=== PATIENT | female | born 1965 | race American Indian/Alaskan Native ===

== ENCOUNTER 2020-07-03 23:10 | Emergency (ER) | payer MEDICARE ==
--- NOTE | 2020-07-04 04:37 | XRay Report ---
CHEST 1 VIEW INDICATION: Chest Pain. COMPARISON: None. FINDINGS: SUPPORT DEVICES: None. HEART: Within normal limits. LUNGS/PLEURA: No acute air space or interstitial disease. ADDITIONAL FINDINGS: None. IMPRESSION: 1. No acute findings. Signer Name: Myles Branch MD Signed: 07/04/2020 4:33 AM Workstation Name: [id number]
[2020-07-04 04:50] LABS: Basophils # (Auto) 0.1 K/mm3 (0.0-0.1); Basophils % (Auto) 2.4 % (0.0-1.8); Eosinophils # (Auto) 0.3 K/mm3 (0.0-0.4); Eosinophils % (Auto) 10.4 % (0.0-4.3); Hematocrit 36.1 % (30.3-42.9); Hemoglobin 12.4 gm/dl (10.1-14.3); Lymphocytes # (Auto) 1.1 K/mm3 (1.2-5.4); Lymphocytes % (Auto) 32.7 % (13.4-35.0); Mean Corpuscular HGB Conc 34 % (30-34); Mean Corpuscular Volume 100 fl (79-97); Monocytes # (Auto) 0.4 K/mm3 (0.0-0.8); Monocytes % (Auto) 12.1 % (0.0-7.3); Platelet Count 345 K/mm3 (140-440); Red Blood Count 3.59 M/mm3 (3.65-5.03); Red Cell Distribution Width 12.4 % (13.2-15.2)
[2020-07-04 05:07] LABS: BUN/Creatinine Ratio 14; Blood Urea Nitrogen 14 mg/dL (7-17); Calcium 9.8 mg/dL (8.4-10.2); Hemolysis Index 3
[2020-07-04] MEDS ORDERED: ACETAMINOPHEN 325 MG TAB PO ONE (06:05)
[2020-07-04 09:25] VITALS: BP 150/86
[2020-07-04] MEDS ORDERED: IPRATROPIUM/ALBUTEROL SULFATE 3 ML AMPUL.NEB IH ONE (09:33)
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
== END 2020-07-04 10:46 | disposition home or self-care (01) ==
LOC: ED 23:10
DX: S20.219A Contusion of unspecified front wall of thorax, initial encounter (principal); J45.901 Unspecified asthma with (acute) exacerbation; Z98.890 Other specified postprocedural states; Z79.2 Long term (current) use of antibiotics; Z79.899 Other long term (current) drug therapy; Z88.8 Allergy status to other drugs, medicaments and biological substances; X58.XXXA Exposure to other specified factors, initial encounter; Y93.89 Activity, other specified; Y92.89 Other specified places as the place of occurrence of the external cause; Y99.8 Other external cause status
CPT/HCPCS: 36415; 71045; 80048; 84484; 85025; 93005; 94640; 94644

== ENCOUNTER 2020-07-12 03:29 | Emergency (ER) | payer MEDICARE ==
[2020-07-12] MEDS ORDERED: MIDAZOLAM 5 MG/5 ML INJ MDV IV ONE (04:05)
[2020-07-12] MEDS ORDERED: EPINEPHrine/PF 1 MG/1 ML INJ SUB-Q ONE (04:05)
[2020-07-12] MEDS ORDERED: ALBUTEROL 2.5 MG/3 ML NEBU IH ONE (04:05)
[2020-07-12] MEDS ORDERED: IPRATROPIUM 0.02% NEBU 2.5 ML IH ONE (04:05)
[2020-07-12] MEDS ORDERED: SODIUM CHLORIDE 0.9% 500 ML 500 ML IV ONE (04:05)
[2020-07-12] MEDS ORDERED: methylPREDNISolone Sod Succinate 125 MG/2 ML INJ IV ONE (04:05)
[2020-07-12] MEDS ORDERED: MAGNESIUM SULFATE 2 GM/50 ML BAG IV ONE (04:06)
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
--- NOTE | 2020-07-12 04:24 | XRay Report ---
CHEST 1 VIEW 0418 INDICATION / CLINICAL INFORMATION: Dyspnea COMPARISON: 07/04/2020 FINDINGS: SUPPORT DEVICES: None HEART / MEDIASTINUM: No significant abnormality. LUNGS / PLEURA: No significant pulmonary or pleural abnormality. No pneumothorax. ADDITIONAL FINDINGS: No significant additional findings. IMPRESSION: No significant acute abnormality Signer Name: Carlos Verma MD Signed: 07/12/2020 4:19 AM Workstation Name: [id number]
[2020-07-12] MEDS ORDERED: predniSONE 20 MG TAB PO ONE (04:32)
[2020-07-12 06:23] VITALS: BP 146/93
== END 2020-07-12 06:30 | disposition left against medical advice (07) ==
LOC: ED 03:29
DX: R06.00 Dyspnea, unspecified (principal); Z20.828 Contact with and (suspected) exposure to other viral communicable diseases; J45.909 Unspecified asthma, uncomplicated; Z79.899 Other long term (current) drug therapy; Z88.8 Allergy status to other drugs, medicaments and biological substances
CPT/HCPCS: 71045; 93005; 99283; J7512

== ENCOUNTER 2021-01-05 04:45 | Emergency (ER) | payer MEDICARE ==
[2021-01-05] MEDS ORDERED: SODIUM CHLORIDE 0.9% 500 ML 500 ML IV ONE (05:01)
[2021-01-05] MEDS ORDERED: hydrALAZINE 20 MG/1 ML INJ IV ONE (05:01)
--- NOTE | 2021-01-05 05:03 | Event Note ---
Date: 01/05/21 Medical screening examination note: Verbal report received from emergency medical services. EMS documentation not available at time of chart dictation This is a 55-year-old female, with a history of alcohol intoxication, hypertension, and asthma/reactive airways disease. She is brought to the hospital by emergency medical services with a complaint of asthma exacerbation. EMS gave the patient 5 of albuterol, 125 mg Solu-Medrol, and 2 g of magnesium sulfate. They report improvement in the patient's respiratory symptoms, with the exception of hypertension and tachycardia. Upon my initial assessment, the patient complains of a few days of chest pressure. The patient is sleepy. The patient smells of alcohol. The patient is difficult to arouse, but ultimately, is arousable. There is no history of trauma. Please patient on air sampling and monitoring, give hydralazine for hypertension, start gentle IV fluids, obtain appropriate laboratory studies, EKG, and reassess. No active wheezing at this time. Appears quite comfortable from a respiratory standpoint. Somewhat tachycardic, likely secondary to albuterol administration.
--- NOTE | 2021-01-05 05:22 | XRay Report ---
CHEST 1 VIEW 01/05/2021 4:15 AM INDICATION / CLINICAL INFORMATION: cp dyspnea. COMPARISON: None available. FINDINGS: SUPPORT DEVICES: None. HEART / MEDIASTINUM: No significant abnormality. LUNGS / PLEURA: No significant pulmonary or pleural abnormality. No pneumothorax. ADDITIONAL FINDINGS: No significant additional findings. IMPRESSION: 1. No acute findings. Signer Name: Gerardo Ruiz MD Signed: 01/05/2021 5:17 AM Workstation Name: [id number]
[2021-01-05 06:00] LABS: Hematocrit 41.4 % (30.3-42.9); Hemoglobin 13.6 gm/dl (10.1-14.3); Mean Corpuscular HGB Conc 33 % (30-34); Mean Corpuscular Volume 103 fl (79-97); Platelet Count 260 K/mm3 (140-440); Red Blood Count 4.03 M/mm3 (3.65-5.03); Red Cell Distribution Width 14.5 % (13.2-15.2)
[2021-01-05 06:10] LABS: INR 0.87 (0.87-1.13)
[2021-01-05 06:11] LABS: BUN/Creatinine Ratio 10; Blood Urea Nitrogen 10 mg/dL (7-17); Calcium 9.3 mg/dL (8.4-10.2); Hemolysis Index 10
[2021-01-05] MEDS ORDERED: IPRATROPIUM/ALBUTEROL SULFATE 3 ML AMPUL.NEB IH ONE (06:17)
[2021-01-05] MEDS ORDERED: ONDANSETRON 4 MG/2 ML INJ IV ONE (06:17)
--- NOTE | 2021-01-05 06:21 | Emergency Department Report ---
ED Asthma HPI - General Chief Complaint: Adult Asthma Stated Complaint: DOREEN Time Seen by Provider: 01/05/21 06:12 Source: patient, EMS Mode of arrival: Stretcher Limitations: No Limitations - History of Present Illness Initial Comments: Patient is 55 years old female with history of asthma and chronic alcohol abuse. Patient brought to the emergency room via EMS for evaluation of shortness of breath and possible asthma attack. Patient stated that symptoms started few days ago and get worse last night. Patient denied any fever or chills. Patient reported chest pain, diffuse, sharp with no radiation. Patient received albuterol, Atrovent, Solu-Medrol and magnesium sulfate by EMS with significant improvement. Upon arrival to the ER patient found to be hypertensive and received hydralazine. MD Complaint: "asthma attack", shortness of breath, wheezing -: days(s) Context: recent URI Associated Symptoms: productive cough Treatments Prior to Arrival: inhaled bronchodilator, IV steroid, oxygen - Related Data Current Asthma Therapy: inhaled bronchodilator Previous Rx's Medication Instructions Recorded Last Taken Type Albuterol *Only Ed* [Proventil 2.5 mg IH Q4H PRN #25 nebu 07/06/14 Unknown Rx 0.5% NEBS] Prednisone [Prednisone 10 mg 10 mg PO .TAPER #1 tab.ds.pk 07/06/14 Unknown Rx (6-Day Pack, 21 Tabs)] ALBUTEROL NEB's [Proventil 0.083% 2.5 mg IH Q6H PRN #25 neb 11/11/14 Unknown Rx NEBS] Albuterol Sulfate [Ventolin HFA] 2 puff IH Q4H PRN #1 hfa.aer.ad 11/11/14 Unknown Rx Ipratropium [Atrovent] 0.5 mg IH Q6HRT PRN #25 neb 11/11/14 Unknown Rx Loratadine (Nf) [Claritin] 10 mg PO DAILY #30 tablet 11/11/14 Unknown Rx Montelukast [Singulair] 10 mg PO QPM #30 tablet 11/11/14 Unknown Rx predniSONE [Deltasone] 20 mg PO TID #15 tab 11/11/14 Unknown Rx Fluticasone/Salmeterol [Advair 1 each IH BID #1 blst.w.dev 07/04/20 Unknown Rx 250-50 Diskus] Montelukast [Singulair] 10 mg PO DAILY #30 tablet 07/04/20 Unknown Rx predniSONE [Deltasone] 40 mg PO QDAY #10 tab 07/04/20 Unknown Rx Albuterol Sulfate [Proair 90 mcg IH Q4HR PRN #2 aer.pow.ba 07/12/20 Unknown Rx Respiclick] Ipratropium (Nf) [Atrovent] 2 puff IH Q6HR PRN #1 inha 07/12/20 Unknown Rx predniSONE [Deltasone] 40 mg PO QDAY #8 tab 07/12/20 Unknown Rx Allergies Allergy/AdvReac Type Severity Reaction Status Date / Time budesonide Allergy Unknown Verified 07/04/20 03:23 cigarette smoke Allergy Shortness Verified 04/18/15 06:11 of Breath codeine Allergy Nausea Verified 02/01/14 01:35 erythromycin base Allergy Hives Verified 02/01/14 01:35 [Erythromycin Base] ED Review of Systems ROS: Stated complaint: DOREEN Other details as noted in HPI Comment: All other systems reviewed and negative Constitutional: denies: chills, fever Respiratory: shortness of breath, SOB with exertion, wheezing. denies: cough Cardiovascular: chest pain, palpitations Gastrointestinal: nausea. denies: abdominal pain, vomiting, diarrhea Musculoskeletal: denies: back pain Neurological: denies: headache, weakness ED Past Medical Hx - Past Medical History Hx Asthma: Yes Additional medical history: Bronchitis, Allergies s/s, Cardiac Arrest and Intubated on Ventilator May 2019, Avascular Necrosis Left Hip - Surgical History Additional Surgical History: D&C - Social History Smoking Status: Never Smoker - Medications Home Medications: Home Medications Medication Instructions Recorded Confirmed Last Taken Type Albuterol *Only Ed* [Proventil 2.5 mg IH Q4H PRN #25 nebu 07/06/14 Unknown Rx 0.5% NEBS] Prednisone [Prednisone 10 mg 10 mg PO .TAPER #1 tab.ds.pk 07/06/14 Unknown Rx (6-Day Pack, 21 Tabs)] ALBUTEROL NEB's [Proventil 0.083% 2.5 mg IH Q6H PRN #25 neb 11/11/14 Unknown Rx NEBS] Albuterol Sulfate [Ventolin HFA] 2 puff IH Q4H PRN #1 hfa.aer.ad 11/11/14 Unknown Rx Ipratropium [Atrovent] 0.5 mg IH Q6HRT PRN #25 neb 11/11/14 Unknown Rx Loratadine (Nf) [Claritin] 10 mg PO DAILY #30 tablet 11/11/14 Unknown Rx Montelukast [Singulair] 10 mg PO QPM #30 tablet 11/11/14 Unknown Rx predniSONE [Deltasone] 20 mg PO TID #15 tab 11/11/14 Unknown Rx Fluticasone/Salmeterol [Advair 1 each IH BID #1 blst.w.dev 07/04/20 Unknown Rx 250-50 Diskus] Montelukast [Singulair] 10 mg PO DAILY #30 tablet 07/04/20 Unknown Rx predniSONE [Deltasone] 40 mg PO QDAY #10 tab 07/04/20 Unknown Rx Albuterol Sulfate [Proair 90 mcg IH Q4HR PRN #2 aer.pow.ba 07/12/20 Unknown Rx Respiclick] Ipratropium (Nf) [Atrovent] 2 puff IH Q6HR PRN #1 inha 07/12/20 Unknown Rx predniSONE [Deltasone] 40 mg PO QDAY #8 tab 07/12/20 Unknown Rx ED Physical Exam - General Limitations: No Limitations General appearance: alert, in no apparent distress - Head Head exam: Present: atraumatic, normocephalic, normal inspection - Eye Eye exam: Present: normal appearance, PERRL - ENT ENT exam: Present: normal exam, normal orophraynx, mucous membranes moist - Neck Neck exam: Present: normal inspection, full ROM. Absent: tenderness, meningismus - Respiratory Respiratory exam: Present: normal lung sounds bilaterally, wheezes, decreased breath sounds - Cardiovascular Cardiovascular Exam: Present: tachycardia - GI/Abdominal GI/Abdominal exam: Present: soft, normal bowel sounds. Absent: distended, tenderness, guarding, rebound, rigid, organomegaly, mass, bruit, pulsatile mass, hernia - Extremities Exam Extremities exam: Present: normal inspection, full ROM, normal capillary refill. Absent: tenderness - Back Exam Back exam: Present: normal inspection, full ROM. Absent: CVA tenderness (R), CVA tenderness (L) - Neurological Exam Neurological exam: Present: alert, oriented X3, CN II-XII intact - Skin Skin exam: Present: warm, intact, normal color ED Course Vital Signs 01/05/21 01/05/21 01/05/21 05:00 05:10 05:16 Pulse Rate 110 H 108 H 115 H Respiratory 31 H 29 H Rate Blood Pressure 200/112 200/112 181/106 O2 Sat by Pulse 91 92 Oximetry 01/05/21 01/05/21 05:30 05:56 Pulse Rate 123 H Respiratory 30 H Rate Blood Pressure 178/92 146/79 O2 Sat by Pulse 93 Oximetry ED Medical Decision Making - Lab Data Result diagrams: 01/05/21 05:13 01/05/21 05:13 - EKG Data -: EKG Interpreted by Nc EKG shows normal: sinus rhythm Rate: tachycardia - EKG Data Interpretation: no acute changes - Radiology Data Radiology results: report reviewed - Medical Decision Making Patient is 55 years old female with history of asthma and chronic alcohol abuse. Patient brought to the emergency room via EMS for evaluation of shortness of breath and possible asthma attack. Patient stated that symptoms started few days ago and get worse last night. Patient denied any fever or chills. Patient reported chest pain, diffuse, sharp with no radiation. Patient received albuterol, Atrovent, Solu-Medrol and magnesium sulfate by EMS with significant i mprovement. Upon arrival to the ER patient found to be hypertensive and received hydralazine. Patient received another dose of albuterol and Atrovent. Labs reviewed and is unremarkable. Chest x-ray is negative for acute finding. Patient stated that she is feeling much better. Patient given prescription for prednisone and proair and advised to follow-up with her primary care physician in the next 2 to 3 days and to return to the ER if she develop any new symptoms. Critical care attestation.: If time is entered above; I have spent that time in minutes in the direct care of this critically ill patient, excluding procedure time. ED Disposition Clinical Impression: Acute asthma exacerbation, Malignant hypertension Disposition: TO HOME OR SELFCARE Is pt being admited?: No Condition: Stable Instructions: Hypertension (ED), Asthma, Adult, Hypertension, Adult, [id number] Referrals: [facility] [Provider Group] - 3-5 Days
[2021-01-05 09:25] VITALS: BP 153/88
--- NOTE | 2021-01-05 14:25 | Electrocardiograph Report ---
[facility] Test Date: 2021-01-05 Test Time: 06:00:24 Pat Name: LUPE BEATTY Department: Room: Gender: F Gas Meter Reader: DONIS : 1965 Requested By: BAKARI AGEE Order Number: [id number] Reading MD: Kenyon Zamudio Measurements Intervals [place] Rate: 121 P: 86 NH: 156 QRS: 64 QRSD: 54 T: 67 QT: 331 QTc: 470 Interpretive Statements Sinus tachycardia LAE, consider biatrial enlargement Probable LVH with secondary repol abnrm No previous ECG available for comparison Electronically Signed On 01-05-2021 14:25:26 EDT by Kenyon Zamudio
== END 2021-01-05 09:28 | disposition home or self-care (01) ==
LOC: ED 04:45
DX: J45.901 Unspecified asthma with (acute) exacerbation (principal); I10 Essential (primary) hypertension; Z79.899 Other long term (current) drug therapy; Z88.8 Allergy status to other drugs, medicaments and biological substances
CPT/HCPCS: 36415; 71045; 80048; 82550; 83690; 83735; 83880; 84484; 85027; 85610; 93005; 94640; 96374; 96375; 99284; J0360; J2405; J7040; 80320; 94644; G0480